=== PATIENT | female | born 1980 | race African-American/Black ===

== ENCOUNTER 2018-02-02 01:16 | Inpatient (IN) | payer OTHER ==
--- NOTE | 2018-02-02 02:01 | PDOC ---
History of Present Illness - General Chief Complaint: Pain, Acute Stated Complaint: ABD PAIN Time Seen by Provider: 02/02/18 02:00 - History of Present Illness Initial Comments: 02/02/18 02:49 Ms. Villalobos is a 37 yo female w/ no pmh who presents for evaluation of epigastric pain. She reports it started around 9 last night and progressed to nausea with vomiting. Patient reports she has had similar instances in the past once or twice which were less severe; cannot relate it to any food or action. She also experienced chills on the way here. The patient denies chest pain, shortness of breath, headache and dizziness. Denies fever, diarrhea and constipation. Denies dysuria, frequency, urgency and hematuria. Allergies: NKDA Past History - Past Medical History Allergies/Adverse Reactions: Allergies Allergy/AdvReac Type Severity Reaction Status Date / Time No Known Allergies Allergy Verified 02/02/18 01:49 Home Medications: Ambulatory Orders NK [No Known Home Medication] 02/02/18 Asthma: No Cancer: No Cardiac Disorders: No Diabetes: No HTN: No Seizures: No Thyroid Disease: No - Suicide/Smoking/Psychosocial Hx Smoking History: Never smoked Have you smoked in the past 12 months: No Information on smoking cessation initiated: No Hx Alcohol Use: No Drug/Substance Use Hx: No Hx Substance Use Treatment: No Review of Systems - Review of Systems Comments:: 02/02/18 02:51 GENERAL/CONSTITUTIONAL: No fever or chills. No weakness. HEAD, EYES, EARS, NOSE AND THROAT: No change in vision. No ear pain or discharge. No sore throat. CARDIOVASCULAR: No chest pain or shortness of breath RESPIRATORY: No cough, wheezing, or hemoptysis. GASTROINTESTINAL: +Epigastric pain w/ N/V/D as described. No diarrhea or constipation. GENITOURINARY: No dysuria, frequency, or change in urination. MUSCULOSKELETAL: No joint or muscle swelling or pain. No neck or back pain. SKIN: No rash NEUROLOGIC: No headache, vertigo, loss of consciousness, or change in strength/ sensation. ENDOCRINE: No increased thirst. No abnormal weight change HEMATOLOGIC/LYMPHATIC: No anemia, easy bleeding, or history of blood clots. ALLERGIC/IMMUNOLOGIC: No hives or skin allergy. *Physical Exam - Vital Signs Last Vital Signs Temp Pulse Resp BP Pulse Ox 99.1 F 82 20 134/83 100 02/02/18 01:50 02/02/18 01:50 02/02/18 01:50 02/02/18 01:50 02/02/18 01:50 - Physical Exam Comments: 02/02/18 02:52 GENERAL: Awake, alert, and fully oriented, in no acute distress HEAD: No signs of trauma, normocephalic, atraumatic EYES: PERRLA, EOMI, sclera anicteric, conjunctiva clear ENT: Auricles normal inspection, hearing grossly normal, nares patent, oropharynx clear without exudates. Moist mucosa NECK: Normal ROM, supple, no lymphadenopathy, JVD, or masses LUNGS: No distress, speaks full sentences, clear to auscultation bilaterally HEART: Regular rate and rhythm, normal S1 and S2, no murmurs, rubs or gallops, peripheral pulses normal and equal bilaterally. ABDOMEN: +Bilateral upper abdominal pain, R>L; otherwise soft, normoactive bowel sounds. No guarding, no rebound. No masses EXTREMITIES: Normal inspection, Normal range of motion, no edema. No clubbing or cyanosis. NEUROLOGICAL: Cranial nerves II through XII grossly intact. Normal speech, normal gait, no focal sensorimotor deficits SKIN: Warm, Dry, normal turgor, no rashes or lesions noted. ED Treatment Course - LABORATORY CBC & Chemistry Diagram: 02/02/18 02:20 02/02/18 02:20 Medical Decision Making - Medical Decision Making 02/02/18 06:38 Ms. Villalobos is a 37 yo female w/ no significant pmh who presents for evaluation of epigastric / RUQ pain suspicious for cholecystitis. Patient workup begun with labs as below and CT abdomen as well as pepcid/fluids/reglan/zofran for symptomatic relief. Patient given tylenol and morphine as well for management of pain. CT abdomen revealed changes c/w cholecystitis although stone not visualized; recommended US for further evaluation. Patient currently pending RUQ US. 02/02/18 06:51 Patient signed out to Dr. Javier for further evaluation. *DC/Admit/Observation/Transfer Diagnosis at time of Disposition: Cholecystitis - Referrals - Patient Instructions - Post Discharge Activity
[2018-02-02] MEDS ORDERED: ONDANSETRON 4 MG/2 ML VIAL IVPUSH ONE (02:06)
[2018-02-02] MEDS ORDERED: SODIUM CHLORIDE 1,000 ML IV STA (02:07)
[2018-02-02] MEDS ORDERED: FAMOTIDINE 20 MG/50 ML IVPB 20 MG/50 ML MG IVPB ONE ×2 (02:07→02:22)
[2018-02-02] MEDS ORDERED: ONDANSETRON 4 MG/2 ML VIAL ONE (02:22)
[2018-02-02 02:35] LABS: EOS % 0.8 % (0-4.5); HEMATOCRIT 32.2 % (32.4-45.2); HEMOGLOBIN 10.1 GM/dL (10.7-15.3); LYMPH % 20.4 % (8-40); MCH 24.7 pg (25.7-33.7); MCHC 31.5 g/dl (32.0-36.0); MEAN CELL VOLUME 78.4 fl (80-96); MONO % 4.9 % (3.8-10.2); NEUT % 72.9 % (42.8-82.8); PLATELET COUNT 296 K/MM3 (134-434); RDW 18.1 % (11.6-15.6); WHITE BLOOD COUNT 7.5 K/mm3 (4.0-10.0)
[2018-02-02] MEDS ORDERED: METOCLOPRAMIDE HCL INJECTION 10 MG/2 ML VIAL ONE ×2 (02:42→03:22)
[2018-02-02] MEDS ORDERED: METOCLOPRAMIDE HCL INJECTION 10 MG/2 ML VIAL IVPB ONE (02:42)
[2018-02-02 02:48] LABS: INR 1.07 (0.82-1.09); PROTHROMBIN TIME (PATIENT) 12.1 SEC (9.7-13.0)
[2018-02-02 02:51] LABS: ACTIVATED PTT 27.8 SECONDS (25.2-36.5)
[2018-02-02 02:55] LABS: ALBUMIN 3.7 g/dl (3.4-5.0); ALK PHOS 75 U/L (45-117); ANION GAP 10 (8-16); BILIRUBIN,TOTAL 0.2 mg/dL (0.2-1.0); BLOOD UREA NITROGEN 11 mg/dL (7-18); CALCIUM 8.8 mg/dL (8.5-10.1); CHLORIDE 103 mmol/L (98-107); CO2 24 mmol/L (21-32); CREATININE 0.6 mg/dL (0.55-1.02); GLUCOSE,RANDOM 120 mg/dL (74-106); POTASSIUM 3.9 mmol/L (3.5-5.1); SGOT/AST 22 U/L (15-37); SGPT/ALT 26 U/L (12-78); SODIUM 137 mmol/L (136-145)
--- NOTE | 2018-02-02 02:58 | PDOC ---
Attending Attestation - HPI HPI: 02/02/18 02:59 The patient is a 37-year-old female, with no past medical history, who presents to the ED with epigastric pain that began at 9 PM yesterday. The patient subsequently developed nausea and vomiting which prompted her to report to the ED. She reports experiencing similar symptoms in the past, but the episodes were never this severe. On exam, the patient reports chills. The patient denies any fever, chills, or diarrhea. Denies any chest pain or shortness of breath. Denies any urinary symptoms. Allergies: NKA - Physicial Exam PE: 02/02/18 03:00 GENERAL: Well developed, well nourished. Awake and alert. No acute distress. HEENT: Normocephalic, atraumatic. PERRLA, EOMI. No conjunctival pallor. Sclera are non- icteric. Moist mucous membranes. Oropharynx is clear. NECK: Supple. Full ROM. No JVD. Carotid pulses 2+ and symmetric, without bruits. No thyromegaly. No lymphadenopathy. CARDIOVASCULAR: Regular rate and rhythm. No murmurs, rubs, or gallops. Distal pulses are 2+ and symmetric. PULMONARY: No evidence of respiratory distress. Lungs clear to auscultation bilaterally. No wheezing, rales or rhonchi. ABDOMINAL: (+)Upper abdominal tenderness, left greater than right. Soft. Non-distended. No rebound or guarding. No organomegaly. Normoactive bowel sounds. MUSCULOSKELETAL Normal range of motion at all joints. No bony deformities or tenderness. No CVA tenderness. EXTREMITIES: No cyanosis. No clubbing. No edema. No calf tenderness. SKIN: Warm and dry. Normal capillary refill. No rashes. No jaundice. NEUROLOGICAL: Alert, awake, appropriate. PSYCHIATRIC: Cooperative. Good eye contact. Appropriate mood and affect. <Ramya Landers - Last Filed: 02/02/18 03:01> - Resident Resident Name: Sivakumar Coleman - ED Attending Attestation I have performed the following: I have examined & evaluated the patient, The case was reviewed & discussed with the resident, I agree w/resident's findings & plan, Exceptions are as noted - Medical Decision Making 02/05/18 19:14 Pt was admitted for further evaluation and care <Nguyễn Rodarte - Last Filed: 02/05/18 19:14> Attestations - Attestations 02/02/18 03:01 Documentation prepared by Ramya Landers, acting as medical records auditor for Nguyễn Rodarte DO. <Ramya Landers - Last Filed: 02/02/18 03:01>
[2018-02-02 02:59] LABS: LIPASE 207 U/L (73-393)
[2018-02-02] MEDS ORDERED: ACETAMINOPHEN 1000 MG/100 ML VIAL (NON FORMULARY) IVPB ONE (03:16)
[2018-02-02] MEDS ORDERED: ACETAMINOPHEN INJECTION 100 ML IVPB ONE (03:23)
[2018-02-02] MEDS ORDERED: morphine CARPU-JECT 4 MG/1 ML DISP.SYRIN IVPUSH ONE ×2 (04:12→06:38)
[2018-02-02] MEDS ORDERED: morphine SULFATE 4 MG/ML VIAL ONE ×2 (04:13→07:03)
[2018-02-02 07:32] LABS: URINE APPEARANCE CLEAR; URINE BILIRUBIN NEGATIVE (<2.0 mg/dL); URINE COLOR STRAW; URINE GLUCOSE (UA) NEGATIVE (NEGATIVE); URINE KETONE 1+ (NEGATIVE); URINE LEUK ESTERASE NEGATIVE (NEGATIVE); URINE NITRITE NEGATIVE (NEGATIVE); URINE PROTEIN NEGATIVE (NEGATIVE); URINE UROBILINOGEN NEGATIVE mg/dL (0.2-1.0)
--- NOTE | 2018-02-02 07:40 | PDOC ---
*Physical Exam - Vital Signs Last Vital Signs Temp Pulse Resp BP Pulse Ox 99.1 F 74 18 103/59 100 02/02/18 01:50 02/02/18 06:53 02/02/18 06:53 02/02/18 06:53 02/02/18 06:53 ED Treatment Course - LABORATORY CBC & Chemistry Diagram: 02/02/18 02:20 02/02/18 02:20 - ADDITIONAL ORDERS Additional order review: Laboratory Results 02/02/18 02/02/18 02/02/18 02:20 02:20 02:20 PT with INR 12.10 INR 1.07 PTT (Actin FS) 27.8 Sodium Potassium Chloride Carbon Dioxide Anion Gap BUN Creatinine Creat Clearance w eGFR Random Glucose Lactic Acid 1.1 Calcium Total Bilirubin AST ALT Alkaline Phosphatase Total Protein Albumin Lipase Serum , Qual Blood Type O POSITIVE Antibody Screen Negative 02/02/18 02/02/18 02:20 02:20 PT with INR INR PTT (Actin FS) Sodium 137 Potassium 3.9 Chloride 103 Carbon Dioxide 24 Anion Gap 10 BUN 11 Creatinine 0.6 Creat Clearance w eGFR > 60 Random Glucose 120 H Lactic Acid Calcium 8.8 Total Bilirubin 0.2 AST 22 ALT 26 Alkaline Phosphatase 75 Total Protein 8.0 Albumin 3.7 Lipase 207 Serum , Qual Negative Blood Type Antibody Screen 02/02/18 02:20 RBC 4.10 MCV 78.4 L MCHC 31.5 L RDW 18.1 H MPV 9.0 D Neutrophils % 72.9 D Lymphocytes % 20.4 D Monocytes % 4.9 Eosinophils % 0.8 Basophils % 1.0 - Medications Given in the ED: ED Medications Discontinued Medications Generic Name Dose Route Start Last Admin Trade Name Elliott PRN Reason Stop Dose Admin Acetaminophen 1,000 mg 02/02/18 03:16 02/02/18 03:25 Ofirmev Injection - IVPB 02/02/18 03:17 1,000 mg ONCE ONE Administration Famotidine/Sodium Chloride 20 mg in 50 mls @ 100 mls/hr 02/02/18 02:07 02:28 Pepcid 20 Mg Premixed Ivpb - IVPB 02/02/18 02:36 100 mls/hr ONCE ONE Administration Sodium Chloride 1,000 mls @ 1,000 mls/hr 02/02/18 02:07 02/02/18 02:28 Normal Saline - IV 02/02/18 03:06 1,000 mls/hr ASDIR STA Administration Metoclopramide HCl 10 mg 02/02/18 02:42 02/02/18 02:50 Reglan Injection - IVPB 02/02/18 02:43 10 mg ONCE ONE Administration Morphine Sulfate 4 mg 02/02/18 04:12 02/02/18 04:19 Morphine Injection - IVPUSH 02/02/18 04:13 4 mg ONCE ONE Administration Morphine Sulfate 4 mg 02/02/18 06:38 02/02/18 07:08 Morphine Injection - IVPUSH 02/02/18 06:39 4 mg ONCE ONE Administration Ondansetron HCl 4 mg 02/02/18 02:06 02/02/18 02:28 Zofran Injection IVPUSH 02/02/18 02:07 4 mg ONCE ONE Administration Medical Decision Making - Medical Decision Making 02/02/18 07:39 The patient is a 37F who presented with abdominal pain and signs of acute cuco on CT. Will page surgery. 02/02/18 07:49 Dr. Kaufman, surgery, states he will come evaluate the patient and board her for surgery. Abx order placed, pt is NPO, giving fluids. 02/02/18 09:29 U/S indicates acute cuco. Hospitalist paged for admission. 02/02/18 10:[address] Brock for admission under Dr. Rogers. *DC/Admit/Observation/Transfer Diagnosis at time of Disposition: Cholecystitis - Discharge Dispostion Condition at time of disposition: Guarded Decision to Admit order: Yes - Referrals - Patient Instructions - Post Discharge Activity
[2018-02-02] MEDS ORDERED: SODIUM CHLORIDE 0.9% 1000 ML INFUS.BAG IV ONE (07:45)
[2018-02-02] MEDS ORDERED: PIPERACILLIN/TAZOB 4.5 GM 4.5 GM in DEXTROSE 5%-WATER 100 ML IVPB ONE (07:56)
--- NOTE | 2018-02-02 08:43 | EKG ---
Test Reason : Blood Pressure : / mmHG Vent. Rate : 067 BPM Atrial Rate : 067 BPM P-R Int : 156 ms QRS Dur : 084 ms QT Int : 392 ms P-R-T Axes : 069 061 042 degrees QTc Int : 414 ms NORMAL SINUS RHYTHM WITH SINUS ARRHYTHMIA POSSIBLE LEFT ATRIAL ENLARGEMENT NO PREVIOUS ECGS AVAILABLE Confirmed by JULY SCHWAB MD ([id number]) on 02/02/2018 8:43:23 AM Referred By: Confirmed By:JULY SCHWAB MD
[2018-02-02] MEDS ORDERED: PIPERACILLIN/TAZOB 4.5 GM 4.5 GM/100 ML BAG IVPB ONE (09:03)
--- NOTE | 2018-02-02 11:08 | HP ---
CHIEF COMPLAINT: Abdominal pain PCP: None HISTORY OF PRESENT ILLNESS: Pt is a 37 yo F with no signif PMHx presenting with a hx of upper abdominal pain x 1 day. Pt was in her usual state of health when she noticed a sudden upper abdominal pain 10/10 at about 9pm last night lasting until about 1am when she came into the hospital. The pain is intermittent, colicky with not related to food, no known worsening or relieving factors. Pain is associated with chills , and n/v of NBNB substances, but no objective fevers. No hematuria, no dysuria or burning on micturition, no loin tenderness. Pt's last bowel movement was during the onset of pain of formed brown stool with blood streaks (pt has a previous hx of hemorrhoids with blood streaked stools in past). No change in diet, no jaundice, no recent travels. Pt had similar symptoms about 2 months ago that lasted a few minutes and self-resolved. Dr Kaufman was consulted in the ED and Pt has been scheduled for cholecystectomy today. LMP: 01/13/18 ER course was notable for: (1) CT abd/pelvis w/ contrast-distended gall bladder with wall thickening, likely cholecystitis, prominent biliary tree. (2) Abd US: 1.6cm calculus in neck of gall bladder , thick walled gall bladder with +ve murphys sign strongly suggestive of acute cholecystitis (3) Zosyn/morphine, zofran, N/saline-2L (4) CXR- no acute changes, EKG- vent rate 67, NSR, NSTE/NSTD, QTc-414 (5) CMP, CBC, Lipase Recent Travel: None PAST MEDICAL HISTORY: None PAST SURGICAL HISTORY: None Social History: Smoking: Denies Alcohol: social Drugs: Denies Family History: Father - 57yrs, of a febrile illness Mother-61yrs- HTN Allergies No Known Allergies Allergy (Verified 02/02/18 01:49) HOME MEDICATIONS: Home Medications Medication Instructions Recorded NK [No Known Home Medication] 02/02/18 REVIEW OF SYSTEMS CONSTITUTIONAL: Absent: fever, chills+, diaphoresis, generalized weakness, malaise, loss of appetite, weight change HEENT: Absent: rhinorrhea, nasal congestion, throat pain, throat swelling, difficulty swallowing, mouth swelling, ear pain, eye pain, visual changes CARDIOVASCULAR: Absent: chest pain, syncope, palpitations, irregular heart rate, lightheadedness , peripheral edema RESPIRATORY: Absent: cough, shortness of breath, dyspnea with exertion, orthopnea, wheezing, stridor, hemoptysis GASTROINTESTINAL: Absent: abdominal pain, abdominal distension, nausea+, vomiting+, diarrhea, constipation, melena, hematochezia GENITOURINARY: Absent: dysuria, frequency, urgency, hesitancy, hematuria, flank pain, genital pain MUSCULOSKELETAL: Absent: myalgia, arthralgia, joint swelling, back pain, neck pain SKIN: Absent: rash, itching, pallor HEMATOLOGIC/IMMUNOLOGIC: Absent: easy bleeding, easy bruising, lymphadenopathy, frequent infections ENDOCRINE: Absent: unexplained weight gain, unexplained weight loss, heat intolerance, cold intolerance NEUROLOGIC: Absent: headache, focal weakness or paresthesias, dizziness, unsteady gait, seizure, mental status changes, bladder or bowel incontinence PSYCHIATRIC: Absent: anxiety, depression, suicidal or homicidal ideation, hallucinations. PHYSICAL EXAMINATION Vital Signs - 24 hr 02/02/18 02/02/18 02/02/18 01:50 06:38 06:53 Temperature 99.1 F Pulse Rate 82 Pulse Rate [ 69 74 Right Apical] Respiratory 20 18 18 Rate Blood Pressure 134/83 Blood Pressure 165/67 103/59 [Right Arm] O2 Sat by Pulse 100 97 100 Oximetry (%) GENERAL: Awake, alert, and fully oriented, in no acute distress. EYES: Pupils equal, round and reactive to light, extraocular movements intact, sclera anicteric, conjunctiva clear EARS, NOSE, THROAT: Moist mucous membranes. LUNGS: Breath sounds equal, clear to auscultation bilaterally. HEART: Regular rate and rhythm, normal S1 and S2 without murmur ABDOMEN: Soft, tender RUQ with +ve murphys sign, not distended, normoactive bowel sounds, no guarding, no rebound HARMONY: External hemorrhoids, non bleeding encircling the anal orifice, good anal hygiene, good tone, empty anal vault, gloved finger without stool MUSCULOSKELETAL: Normal range of motion at all joints. No bony deformities or tenderness. No CVA tenderness. LOWER EXTREMITIES: 2+ pulses, warm, well-perfused. No calf tenderness. No peripheral edema. NEUROLOGICAL: AAOx3, normal strength and muscle tone. Normal speech. CBC, BMP 02/02/18 02:20 02/02/18 02:20 Laboratory Results - last 24 hr 02/02/18 02/02/18 02/02/18 02:20 02:20 02:20 WBC 7.5 RBC 4.10 Hgb 10.1 L Hct 32.2 L D MCV 78.4 L MCH 24.7 L D MCHC 31.5 L RDW 18.1 H Plt Count 296 D MPV 9.0 D Absolute Neuts (auto) 5.5 Neutrophils % 72.9 D Lymphocytes % 20.4 D Monocytes % 4.9 Eosinophils % 0.8 Basophils % 1.0 Nucleated RBC % 0 PT with INR INR PTT (Actin FS) Sodium 137 Potassium 3.9 Chloride 103 Carbon Dioxide 24 Anion Gap 10 BUN 11 Creatinine 0.6 Creat Clearance w eGFR > 60 Random Glucose 120 H Lactic Acid Calcium 8.8 Total Bilirubin 0.2 AST 22 ALT 26 Alkaline Phosphatase 75 Total Protein 8.0 Albumin 3.7 Lipase 207 Serum , Qual Negative Urine Color Urine Appearance Urine pH Ur Specific [place] Urine Protein Urine Glucose (UA) Urine Ketones Urine Blood Urine Nitrite Urine Bilirubin Urine Urobilinogen Ur Leukocyte Esterase Blood Type Antibody Screen 02/02/18 02/02/18 02/02/18 02:20 02:20 02:20 WBC RBC Hgb Hct MCV MCH MCHC RDW Plt Count MPV Absolute Neuts (auto) Neutrophils % Lymphocytes % Monocytes % Eosinophils % Basophils % Nucleated RBC % PT with INR 12.10 INR 1.07 PTT (Actin FS) 27.8 Sodium Potassium Chloride Carbon Dioxide Anion Gap BUN Creatinine Creat Clearance w eGFR Random Glucose Lactic Acid 1.1 Calcium Total Bilirubin AST ALT Alkaline Phosphatase Total Protein Albumin Lipase Serum , Qual Urine Color Urine Appearance Urine pH Ur Specific [place] Urine Protein Urine Glucose (UA) Urine Ketones Urine Blood Urine Nitrite Urine Bilirubin Urine Urobilinogen Ur Leukocyte Esterase Blood Type O POSITIVE Antibody Screen Negative 02/02/18 06:06 WBC RBC Hgb Hct MCV MCH MCHC RDW Plt Count MPV Absolute Neuts (auto) Neutrophils % Lymphocytes % Monocytes % Eosinophils % Basophils % Nucleated RBC % PT with INR INR PTT (Actin FS) Sodium Potassium Chloride Carbon Dioxide Anion Gap BUN Creatinine Creat Clearance w eGFR Random Glucose Lactic Acid Calcium Total Bilirubin AST ALT Alkaline Phosphatase Total Protein Albumin Lipase Serum , Qual Urine Color Straw Urine Appearance Clear Urine pH 7.0 Ur Specific [place] > 1.060 H Urine Protein Negative Urine Glucose (UA) Negative Urine Ketones 1+ H Urine Blood Negative Urine Nitrite Negative Urine Bilirubin Negative Urine Urobilinogen Negative Ur Leukocyte Esterase Negative Blood Type Antibody Screen Current Medications Sodium Chloride (Normal Saline -) 1,000 mls @ 100 mls/hr IV ASDIR LUCY Morphine Sulfate (Morphine Sulfate) 2 mg IVPUSH Q4H PRN PRN Reason: PAIN LEVEL 4 - 6 Morphine Sulfate (Morphine Sulfate) 4 mg IVPUSH Q4H PRN PRN Reason: PAIN LEVEL 6-10 Ondansetron HCl (Zofran Injection) 4 mg IVPUSH Q6H PRN PRN Reason: NAUSEA ASSESSMENT/PLAN: 37 yo F with no signif PMHx presenting with a hx of upper abdominal pain x 1 day , found to have acute cholecystitis with 1.6cm obstructive stone Acute cholecystis with obstructive stone acute cholecystitis with obstructive stone noted on US/ CT a/p, positive murphys and positive sonographic murphys LFTs within normal, Estuardo wnl, lipase wnl Pt is not currently septic, received zosyn 4.45g in ED Received 2L NS, continue @100/hr Cont pain mx with morphine 2mg (1-5), 4mg (6-10) Received 4.45g zosyn in ED in the am, postop antibiotic need to be determined iv zofran 4mg Q6H Surgical consult- Dr Kaufman on board, pt scheduled for cholecystectomy PT/INR-1.07 Type and screen -done EKG/CXR- no acute changes Pt is minimal risk for minimal risk surgery Revised Cardiac Risk Index (RCRI) score-0 (0.4%) risk of major cardiac event Myocardial infarction or cardiac arrest intraoperatively (JULIA)-0.0% Anemia Mild Microcytic anemia, currently asymptomatic, likely chronic Could be due to blood loss from hemorrhoids Monitor CBC Type and screen Coags within normal Pt will need follow up iron studies likely as an outpatient FEN NS @100 Monitor lytes, replete as needed, Mg and Ph NPO for now PPx SCDs, early ambulation hold heparin for [facility] admission D/W Dr Katy Brock MD PGY 2 Pager number [phone] Visit type - Emergency Visit Emergency Visit: Yes Care time: The patient presented to the Emergency Department on the above date and was hospitalized for further evaluation of their emergent condition. - New Patient This patient is new to me today: Yes Date on this admission: 02/02/18 - Critical Care Critical Care patient: No Hospitalist Screening - Colonoscopy Questionnaire Colonoscopy Questionnaire: Colonoscopy Questionnaire - Patient: 50 - 75 years old and never had a screening colonoscopy: Unknown History of colon or rectal polyps, or CA: Unknown History of IBD, Crohn's disease or UC: Unknown History of abdominal radiation therapy as a child: Unknown - Relative: 1 with colon or rectal CA, or polyps at age 60 or younger: Unknown Colon or rectal CA diagnosed at age 45 or younger: Unknown Multiple relatives with colon or rectal CA: Unknown - Outcome: Screening Result: Negative Screen
[2018-02-02] MEDS ORDERED: SODIUM CHLORIDE 1,000 ML IV SCH (12:00)
[2018-02-02] MEDS ORDERED: MORPHINE SULFATE 2 MG/ML VIAL IVPUSH PRN (12:08)
[2018-02-02] MEDS ORDERED: morphine SULFATE 4 MG/ML VIAL IVPUSH PRN (12:11)
[2018-02-02] MEDS ORDERED: ONDANSETRON 4 MG/2 ML VIAL IVPUSH PRN (12:27)
--- NOTE | 2018-02-02 14:50 | PN ---
Teaching Attending Note Name of Resident: Arielle Brock ATTENDING PHYSICIAN STATEMENT I saw and evaluated the patient. I reviewed the resident's note and discussed the case with the resident. I agree with the resident's findings and plan as documented. SUBJECTIVE: This is a 37 year old woman with no significant history who comes to the ED complaining of upper abdominal pain x 1 day. Pain started suddenly around 9 pm last night, 2 hours after eating. She had nausea, vomiting, chills. The pain was on and off until around 1 am. She denies hematemesis, melena, rectal bleeding, change in bowel habits, weight loss, loss of appetite. She had similar abdominal pain 2 months ago which lasted a few minutes and resolved on its own. OBJECTIVE: Vital Signs Period Temp Pulse Resp BP Sys/Hendrix Pulse Ox Last 24 Hr 98.4 F-99.1 F 59-82 18-20 103-165/59-83 97-100 HEART: S1S2, RRR LUNGS: Clear ABDOMEN: Soft, non-distended, (+) RUQ tenderness, normal BS EXTREMITIES: No edema Laboratory Tests 02/02/18 02/02/18 02/02/18 02:20 02:20 02:20 WBC 7.5 RBC 4.10 Hgb 10.1 L Hct 32.2 L D MCV 78.4 L MCH 24.7 L D MCHC 31.5 L RDW 18.1 H Plt Count 296 D MPV 9.0 D Absolute Neuts (auto) 5.5 Neutrophils % 72.9 D Lymphocytes % 20.4 D Monocytes % 4.9 Eosinophils % 0.8 Basophils % 1.0 Nucleated RBC % 0 PT with INR INR PTT (Actin FS) Sodium 137 Potassium 3.9 Chloride 103 Carbon Dioxide 24 Anion Gap 10 BUN 11 Creatinine 0.6 Creat Clearance w eGFR > 60 Random Glucose 120 H Lactic Acid Calcium 8.8 Total Bilirubin 0.2 AST 22 ALT 26 Alkaline Phosphatase 75 Total Protein 8.0 Albumin 3.7 Lipase 207 Serum , Qual Negative Urine Color Urine Appearance Urine pH Ur Specific [place] Urine Protein Urine Glucose (UA) Urine Ketones Urine Blood Urine Nitrite Urine Bilirubin Urine Urobilinogen Ur Leukocyte Esterase Blood Type Antibody Screen 02/02/18 02/02/18 02/02/18 02:20 02:20 02:20 WBC RBC Hgb Hct MCV MCH MCHC RDW Plt Count MPV Absolute Neuts (auto) Neutrophils % Lymphocytes % Monocytes % Eosinophils % Basophils % Nucleated RBC % PT with INR 12.10 INR 1.07 PTT (Actin FS) 27.8 Sodium Potassium Chloride Carbon Dioxide Anion Gap BUN Creatinine Creat Clearance w eGFR Random Glucose Lactic Acid 1.1 Calcium Total Bilirubin AST ALT Alkaline Phosphatase Total Protein Albumin Lipase Serum , Qual Urine Color Urine Appearance Urine pH Ur Specific [place] Urine Protein Urine Glucose (UA) Urine Ketones Urine Blood Urine Nitrite Urine Bilirubin Urine Urobilinogen Ur Leukocyte Esterase Blood Type O POSITIVE Antibody Screen Negative 02/02/18 06:06 WBC RBC Hgb Hct MCV MCH MCHC RDW Plt Count MPV Absolute Neuts (auto) Neutrophils % Lymphocytes % Monocytes % Eosinophils % Basophils % Nucleated RBC % PT with INR INR PTT (Actin FS) Sodium Potassium Chloride Carbon Dioxide Anion Gap BUN Creatinine Creat Clearance w eGFR Random Glucose Lactic Acid Calcium Total Bilirubin AST ALT Alkaline Phosphatase Total Protein Albumin Lipase Serum , Qual Urine Color Straw Urine Appearance Clear Urine pH 7.0 Ur Specific [place] > 1.060 H Urine Protein Negative Urine Glucose (UA) Negative Urine Ketones 1+ H Urine Blood Negative Urine Nitrite Negative Urine Bilirubin Negative Urine Urobilinogen Negative Ur Leukocyte Esterase Negative Blood Type Antibody Screen Home Medications Medication Instructions Recorded NK [No Known Home Medication] 02/02/18 ASSESSMENT AND PLAN: This is a 37 year old woman with no significant medical history who presented to the ED with sudden onset last night of upper abdominal pain associated with nausea, vomiting and chills. 1. Acute cholecystitis - Abd US shows 1.6 cm stone in gallbladder neck, thickened gallbladder wall, positive Scherer's sign, strongly suggestive of acute cholecystitis - CT abd/pelvis shows distended gallbladder with wall thickening, suspicious for cholecystitis - Zosyn given in ED - will continue - IV fluid - NPO - Morphine as needed for pain - Zofran as needed for nausea - Surgery consult 2. Anemia, microcytic - Asymptomatic - Likely chronic - Monitor hemoglobin - Work-up can be done as outpatient if patient remains stable
[2018-02-02 15:54] VITALS: BMI 24.1
[2018-02-02 16:43] LABS: INR 1.17 (0.82-1.09); PROTHROMBIN TIME (PATIENT) 13.2 SEC (9.7-13.0)
[2018-02-02 16:46] LABS: ACTIVATED PTT 30.7 SECONDS (25.2-36.5)
--- NOTE | 2018-02-02 18:19 | CONSULT ---
Consult Consult Specialty:: Surgery Reason for Consultation:: Abdominal pain , acute cholecystitis. - History of Present Illness Chief Complaint: 37 year old woman c/o right sided abdominal pain for the past 2 days, not being relieved , and came to the ER this morning. Patient was seen at 8:00 am this morning and again at 2:00pm. She hasd a similar episode a few months ago. History of Present Illness: C/O Right sided abdominal pain for the past 2 days, with nausea. - History Source History Provided By: Patient Limitations to Obtaining History: No Limitations - Alcohol/Substance Use Hx Alcohol Use: No - Smoking History Smoking history: Never smoked Have you smoked in the past 12 months: No Home Medications - Allergies Allergies/Adverse Reactions: Allergies Allergy/AdvReac Type Severity Reaction Status Date / Time No Known Allergies Allergy Verified 02/02/18 01:49 - Home Medications Home Medications: Ambulatory Orders NK [No Known Home Medication] 02/02/18 Physical Exam Vital Signs: Vital Signs Temperature 98.6 F 02/02/18 12:30 Pulse Rate 59 L 02/02/18 12:30 Respiratory Rate 18 02/02/18 12:30 Blood Pressure 124/73 02/02/18 12:30 O2 Sat by Pulse Oximetry (%) 100 02/02/18 09:25 Gastrointestinal: Yes: Other (Abdomen is tender in the right upper quadrant. There is no palpable mass.) Labs: CBC, BMP 02/02/18 02:20 02/02/18 02:20 Imaging - Results Cat Scan: Report Reviewed, Image Reviewed Ultrasound: Report Reviewed, Image Reviewed (Calculus of gallbladder , impacted in the infundibulum , with some thickening of the gallbladder.) Problem List - Problems (1) Abdominal pain, acute, right upper quadrant Code(s): R10.11 - RIGHT UPPER QUADRANT PAIN (2) Calculus of gallbladder with cholecystitis and obstruction Code(s): K80.19 - CALCULUS OF GALLBLADDER W OTH CHOLECYSTITIS WITH OBSTRUCTION Qualifiers: Cholelithiasis location: gallbladder Cholecystitis acuity: acute Qualified Code(s): K80.01 - Calculus of gallbladder with acute cholecystitis with obstruction Assessment/Plan Acute cholecystitis, with stone in infundibulum. Plan : Hydrate , IV antibiotics. Pain management. Patient was on the add on schedule for today, but OR time is not available, She is on the schedule for Monday.
[2018-02-03] MEDS ORDERED: PIPERACILLIN/TAZOB 4.5 GM 4.5 GM in DEXTROSE 5%-WATER 100 ML IVPB ONE (06:04)
[2018-02-03] MEDS ORDERED: PIPERACILLIN/TAZOBACTAM 4.5 GM VIAL IVPB ONE (06:16)
[2018-02-03] MEDS ORDERED: DEXTROSE 5%-WATER 100 ML IVPB ONE (06:16)
[2018-02-03 07:59] LABS: EOS % 2.1 % (0-4.5); HEMATOCRIT 30.7 % (32.4-45.2); HEMOGLOBIN 9.7 GM/dL (10.7-15.3); LYMPH % 29.5 % (8-40); MCH 24.9 pg (25.7-33.7); MCHC 31.7 g/dl (32.0-36.0); MEAN CELL VOLUME 78.4 fl (80-96); MONO % 9.3 % (3.8-10.2); NEUT % 58.1 % (42.8-82.8); PLATELET COUNT 249 K/MM3 (134-434); RBC 3.91 M/mm3 (3.60-5.2); RDW 17.8 % (11.6-15.6)
[2018-02-03 08:32] LABS: ALBUMIN 3.1 g/dl (3.4-5.0); ANION GAP 8 (8-16); BILIRUBIN,TOTAL 0.5 mg/dL (0.2-1.0); BLOOD UREA NITROGEN 3 mg/dL (7-18); CALCIUM 8.6 mg/dL (8.5-10.1); CHLORIDE 108 mmol/L (98-107); CO2 25 mmol/L (21-32); CREATININE 0.6 mg/dL (0.55-1.02); GLUCOSE,RANDOM 88 mg/dL (74-106); MAGNESIUM 2.2 mg/dL (1.8-2.4); PHOSPHOROUS 3.3 mg/dL (2.5-4.9); SGOT/AST 21 U/L (15-37); SGPT/ALT 23 U/L (12-78); SODIUM 141 mmol/L (136-145); TOT PROT 6.9 g/dl (6.4-8.2)
[2018-02-03 08:33] LABS: ALK PHOS 55 U/L (45-117)
--- NOTE | 2018-02-03 13:25 | PN ---
Progress Note, Physician - Current Medication List Current Medications: Active Medications Sodium Chloride (Normal Saline -) 1,000 mls @ 100 mls/hr IV ASDIR LUCY Last Admin: 02/02/18 23:10 Dose: 100 mls/hr Morphine Sulfate (Morphine Sulfate) 2 mg IVPUSH Q4H PRN PRN Reason: PAIN LEVEL 4 - 6 Morphine Sulfate (Morphine Sulfate) 4 mg IVPUSH Q4H PRN PRN Reason: PAIN LEVEL 6-10 Ondansetron HCl (Zofran Injection) 4 mg IVPUSH Q6H PRN PRN Reason: NAUSEA - Objective Vital Signs: Vital Signs Temperature 98.3 F 02/03/18 05:50 Pulse Rate 68 02/03/18 05:50 Respiratory Rate 20 02/03/18 09:00 Blood Pressure 115/72 02/03/18 05:50 O2 Sat by Pulse Oximetry (%) 100 02/03/18 09:00 Labs: CBC, BMP 02/03/18 06:00 02/03/18 06:00 INR, PTT INR 1.17 (0.82-1.09) H 02/02/18 15:00 Problem List - Problems (1) Abdominal pain, acute, right upper quadrant Code(s): R10.11 - RIGHT UPPER QUADRANT PAIN (2) Calculus of gallbladder with cholecystitis and obstruction Code(s): K80.19 - CALCULUS OF GALLBLADDER W OTH CHOLECYSTITIS WITH OBSTRUCTION Qualifiers: Cholelithiasis location: gallbladder Cholecystitis acuity: acute Qualified Code(s): K80.01 - Calculus of gallbladder with acute cholecystitis with obstruction Assessment/Plan Patient is still pump operator in right upper quadrant. Not icteric. OPlan : Cholecystectomy on Monday.
--- NOTE | 2018-02-03 14:40 | PN ---
Progress Note (short form) - Note Progress Note: c/o RUQ on palpation but none at rest. tolerating liquid diet. denies CP, SOB< fever, chills, N/V/C/D Current Medications Generic Name Dose Route Start Last Admin Trade Name Freq PRN Reason Stop Dose Admin Sodium Chloride 1,000 mls @ 100 mls/hr 02/02/18 12:00 02/02/18 23:10 Normal Saline - IV 100 mls/hr ASDIR LUCY Administration Ceftriaxone Sodium 2 gm in 50 mls @ 100 mls/hr 02/03/18 14:45 Ceftriaxone 2 Gm-D5w Bag IVPB DAILY LUCY Protocol Metronidazole 500 mg in 100 mls @ 100 mls/hr 02/03/18 18:00 Flagyl 500mg Premixed Ivpb - IVPB Q8H-IV LUCY Morphine Sulfate 2 mg 02/02/18 12:08 Morphine Sulfate IVPUSH Q4H PRN PAIN LEVEL 4 - 6 Morphine Sulfate 4 mg 02/02/18 12:11 Morphine Sulfate IVPUSH Q4H PRN PAIN LEVEL 6-10 Ondansetron HCl 4 mg 02/02/18 12:27 Zofran Injection IVPUSH Q6H PRN NAUSEA Last Vital Signs Temp Pulse Resp BP Pulse Ox 98.3 F 68 20 115/72 100 02/03/18 05:50 02/03/18 05:50 02/03/18 09:00 02/03/18 05:50 02/03/18 09:00 General NAD CV S1 S2 RRR no murmur/rub/gallop Lungs CTA B/L no wheezing/rales/rhonchi Abdomen +RUQ tenderness, no rebound or guarding, soft +BS Extremities no pedal edema CBCD WBC 6.0 K/mm3 (4.0-10.0) 02/03/18 06:00 RBC 3.91 M/mm3 (3.60-5.2) 02/03/18 06:00 Hgb 9.7 GM/dL (10.7-15.3) L 02/03/18 06:00 Hct 30.7 % (32.4-45.2) L 02/03/18 06:00 MCV 78.4 fl (80-96) L 02/03/18 06:00 MCHC 31.7 g/dl (32.0-36.0) L 02/03/18 06:00 RDW 17.8 % (11.6-15.6) H 02/03/18 06:00 Plt Count 249 K/MM3 (134-434) 02/03/18 06:00 MPV 9.0 fl (7.5-11.1) 02/03/18 06:00 CMP Sodium 141 mmol/L (136-145) 02/03/18 06:00 Potassium 4.0 mmol/L (3.5-5.1) 02/03/18 06:00 Chloride 108 mmol/L (98-107) H 02/03/18 06:00 Carbon Dioxide 25 mmol/L (21-32) 02/03/18 06:00 Anion Gap 8 (8-16) 02/03/18 06:00 BUN 3 mg/dL (7-18) L 02/03/18 06:00 Creatinine 0.6 mg/dL (0.55-1.02) 02/03/18 06:00 Creat Clearance w eGFR > 60 (>60) 02/03/18 06:00 Calcium 8.6 mg/dL (8.5-10.1) 02/03/18 06:00 Total Bilirubin 0.5 mg/dL (0.2-1.0) 02/03/18 06:00 AST 21 U/L (15-37) 02/03/18 06:00 ALT 23 U/L (12-78) 02/03/18 06:00 Alkaline Phosphatase 55 U/L (45-117) D 02/03/18 06:00 Total Protein 6.9 g/dl (6.4-8.2) 02/03/18 06:00 Albumin 3.1 g/dl (3.4-5.0) L 02/03/18 06:00 A/P 37yo F wtih no PMH presenting with RUQ pain and found to have acute cholecystitis 1. ACute cholecystitis- tolerating liquid diet. plan for laprascopic cholecystectomy on Monday due to scheduling conflict. Switch Zosyn to Ceftriaxone/Flagyl. can d/c abx after surgery. reduce IVF to 75cc/H as tolerating diet. pain control. surgery on board 2. Microcytic anemia- dilutional effect. no signs of bleeding. check iron studies. no indication for txn 3. DVT ppx- EAM Visit type - Emergency Visit Emergency Visit: Yes Care time: The patient presented to the Emergency Department on the above date and was hospitalized for further evaluation of their emergent condition. - New Patient This patient is new to me today: Yes Date on this admission: 02/03/18 - Critical Care Critical Care patient: No - Discharge Referral Referred to [facility] Med P.C.: No
[2018-02-03] MEDS ORDERED: DEXTROSE 5%-WATER - 50 ML IVPB ONE (14:54)
[2018-02-03] MEDS: CEFTRIAXONE 2 GM in DEXTROSE 5%-WATER - 50 ML IVPB SCH (14:57)
[2018-02-03] MEDS: SODIUM CHLORIDE 1,000 ML IV SCH (16:00)
[2018-02-04] MEDS: SODIUM CHLORIDE 1,000 ML IV SCH ×2 (01:25→17:29)
[2018-02-04 06:46] LABS: HEMATOCRIT 33.9 % (32.4-45.2); HEMOGLOBIN 10.6 GM/dL (10.7-15.3); MCH 24.6 pg (25.7-33.7); MCHC 31.3 g/dl (32.0-36.0); MEAN CELL VOLUME 78.5 fl (80-96); MEAN PLT VOLUME 8.7 fl (7.5-11.1); PLATELET COUNT 302 K/MM3 (134-434); RBC 4.32 M/mm3 (3.60-5.2); RDW 18.3 % (11.6-15.6); WHITE BLOOD COUNT 6.9 K/mm3 (4.0-10.0)
[2018-02-04] MEDS ORDERED: DEXTROSE 5%-WATER - 50 ML IVPB ONE (09:25)
[2018-02-04] MEDS: CEFTRIAXONE 2 GM in DEXTROSE 5%-WATER - 50 ML IVPB SCH (10:35)
[2018-02-04] MEDS ORDERED: PT OWN MED DRAWER 7, Y5N ONE ×2 (11:08→17:15)
--- NOTE | 2018-02-04 12:47 | PN ---
Progress Note (short form) - Note Progress Note: c/o RUQ on palpation but none at rest. tolerating liquid diet. denies CP, SOB< fever, chills, N/V/C/D Current Medications Generic Name Dose Route Start Last Admin Trade Name Freq PRN Reason Stop Dose Admin Ceftriaxone Sodium 2 gm/ 50 mls @ 100 mls/hr 02/03/18 14:45 02/04/18 10:35 Dextrose IVPB 100 mls/hr DAILY LUCY Administration Protocol Metronidazole 500 mg in 100 mls @ 100 mls/hr 02/03/18 18:00 02/04/18 09:30 Flagyl 500mg Premixed Ivpb - IVPB 100 mls/hr Q8H-IV LUCY Administration Sodium Chloride 1,000 mls @ 75 mls/hr 02/03/18 15:36 02/04/18 01:25 Normal Saline - IV 75 mls/hr ASDIR LUCY Administration Morphine Sulfate 2 mg 02/02/18 12:08 Morphine Sulfate IVPUSH Q4H PRN PAIN LEVEL 4 - 6 Morphine Sulfate 4 mg 02/02/18 12:11 Morphine Sulfate IVPUSH Q4H PRN PAIN LEVEL 6-10 Ondansetron HCl 4 mg 02/02/18 12:27 Zofran Injection IVPUSH Q6H PRN NAUSEA Last Vital Signs Temp Pulse Resp BP Pulse Ox 98.3 F 63 18 112/78 100 02/04/18 09:29 02/04/18 09:29 02/04/18 09:29 02/04/18 09:29 02/04/18 09:00 General NAD CV S1 S2 RRR no murmur/rub/gallop Lungs CTA B/L no wheezing/rales/rhonchi Abdomen +RUQ tenderness, no rebound or guarding, soft +BS Extremities no pedal edema CBCD WBC 6.9 K/mm3 (4.0-10.0) 02/04/18 06:00 RBC 4.32 M/mm3 (3.60-5.2) 02/04/18 06:00 Hgb 10.6 GM/dL (10.7-15.3) L 02/04/18 06:00 Hct 33.9 % (32.4-45.2) 02/04/18 06:00 MCV 78.5 fl (80-96) L 02/04/18 06:00 MCHC 31.3 g/dl (32.0-36.0) L 02/04/18 06:00 RDW 18.3 % (11.6-15.6) H 02/04/18 06:00 Plt Count 302 K/MM3 (134-434) D 02/04/18 06:00 MPV 8.7 fl (7.5-11.1) 02/04/18 06:00 CMP Sodium 141 mmol/L (136-145) 02/03/18 06:00 Potassium 4.0 mmol/L (3.5-5.1) 02/03/18 06:00 Chloride 108 mmol/L (98-107) H 02/03/18 06:00 Carbon Dioxide 25 mmol/L (21-32) 02/03/18 06:00 Anion Gap 8 (8-16) 02/03/18 06:00 BUN 3 mg/dL (7-18) L 02/03/18 06:00 Creatinine 0.6 mg/dL (0.55-1.02) 02/03/18 06:00 Creat Clearance w eGFR > 60 (>60) 02/03/18 06:00 Calcium 8.6 mg/dL (8.5-10.1) 02/03/18 06:00 Total Bilirubin 0.5 mg/dL (0.2-1.0) 02/03/18 06:00 AST 21 U/L (15-37) 02/03/18 06:00 ALT 23 U/L (12-78) 02/03/18 06:00 Alkaline Phosphatase 55 U/L (45-117) D 02/03/18 06:00 Total Protein 6.9 g/dl (6.4-8.2) 02/03/18 06:00 Albumin 3.1 g/dl (3.4-5.0) L 02/03/18 06:00 A/P 37yo F wtih no PMH presenting with RUQ pain and found to have acute cholecystitis 1. ACute cholecystitis- tolerating liquid diet. NPO tonight for laprascopic cholecystectomy tomorrow. On Ceftriaxone/Flagyl day 3 of total abx. can d/c abx after surgery. cont IVF, nausea and pain control. surgery on board 2. Microcytic anemia- dilutional effect. no signs of bleeding. iron studies pending. no indication for txn 3. DVT ppx- EAM Visit type - Emergency Visit Emergency Visit: Yes ED Registration Date: 02/03/18 Care time: The patient presented to the Emergency Department on the above date and was hospitalized for further evaluation of their emergent condition. - New Patient This patient is new to me today: No - Critical Care Critical Care patient: No - Discharge Referral Referred to [facility] Med P.C.: No
[2018-02-05] MEDS ORDERED: DEXTROSE 5%-WATER - 50 ML IVPB ONE (09:53)
[2018-02-05] MEDS: SODIUM CHLORIDE 1,000 ML IV SCH ×4 (09:59→17:57)
[2018-02-05] MEDS: CEFTRIAXONE 2 GM in DEXTROSE 5%-WATER - 50 ML IVPB SCH (10:00)
[2018-02-05] MEDS ORDERED: PROPOFOL 20 ML ONE (13:32)
[2018-02-05] MEDS ORDERED: MIDAZOLAM HCL 2 MG/2 ML SINGLE DOSE VIAL ONE (13:32)
[2018-02-05] MEDS ORDERED: ROCURONIUM BROMIDE 50 MG/5 ML VIAL ONE (13:32)
[2018-02-05] MEDS ORDERED: fentaNYL CITRATE 250 MCG/5 ML VIAL ONE (13:32)
--- NOTE | 2018-02-05 13:40 | PN ---
Teaching Attending Note Name of Resident: Magdaleno Monet ATTENDING PHYSICIAN STATEMENT I saw and evaluated the patient. I reviewed the resident's note and discussed the case with the resident. I agree with the resident's findings and plan as documented. SUBJECTIVE:asymptomatic. tolerating clear liquid diet. dneies CP, SOB, fever, chills, N/V/C/D OBJECTIVE: Last Vital Signs Temp Pulse Resp BP Pulse Ox 98.3 F 70 18 125/78 100 02/05/18 06:00 02/05/18 06:00 02/05/18 06:00 02/05/18 06:00 02/04/18 09:00 General NAD Abdomen soft+RUQ tenderness ASSESSMENT AND PLAN: 37yo F wtih no PMH presenting with RUQ pain and found to have acute cholecystitis 1. ACute cholecystitis- tolerating liquid diet. NPO for laprascopic cholecystectomy. On Ceftriaxone/Flagyl day 4 of total abx. can d/c abx after surgery. cont IVF, nausea and pain control. surgery on board 2. Microcytic anemia- dilutional effect. no signs of bleeding. iron studies pending. no indication for txn 3. DVT ppx- EAM 4. possible d/c home today post surgery as long as no complications from surgery
[2018-02-05] MEDS ORDERED: ONDANSETRON 4 MG/2 ML VIAL IVPUSH PRN ×3 (13:41→16:06)
[2018-02-05] MEDS ORDERED: LACTATED RINGERS SOLUTION 1,000 ML IV SCH ×2 (13:45→16:06)
[2018-02-05] MEDS ORDERED: ceFAZolin SODIUM 1 GM VIAL IVPB ONE ×2 (14:10)
[2018-02-05] MEDS ORDERED: ceFAZolin SODIUM 1 GM VIAL ONE (14:13)
[2018-02-05] MEDS ORDERED: DEXAMETHASONE SOD PHOSPHATE 4 MG/1 ML VIAL ONE (14:13)
[2018-02-05] MEDS ORDERED: GLYCOPYRROLATE 0.2 MG/1 ML VIAL ONE (15:23)
[2018-02-05] MEDS ORDERED: NEOSTIGMINE METHYLSULFATE 0.5 MG/ML - 10 ML MDV ONE (15:24)
--- NOTE | 2018-02-05 15:44 | OP ---
Operative Note - Note: Operative Date: 02/05/18 Pre-Operative Diagnosis: Calculus of gallbladder with acute cholecystitis, umbilical hernia. Operation: Laparoscopic cholecystectomy, primary repair of umbilical hernia,. Lysis of omental adhesions. Findings: Acutely inflammed gallbladder, with omental adhesions, surrounding the gallbladder. Umbilical hernia. Post-Operative Diagnosis: Other (Calculus of gallbladder with acute cholecystitis with cystic duct obstruction ,Omental adhesions, Umbilical hernia. ) Surgeon: Gayatri Kaufman Anesthesiologist/MEDICAL TRANSPORT SPECIALIST: Clara Trevino Anesthesia: General Specimens Removed: Gallbladder Estimated Blood Loss (mls): 15 Operative Report Dictated: Yes
--- NOTE | 2018-02-05 15:56 | PN ---
Progress Note, Physician - Current Medication List Current Medications: Active Medications Fentanyl (Sublimaze Injection -) 50 mcg IVPUSH [id number] PRN PRN Reason: PAIN-PACU ORDER X 4 DOSES ONLY Ceftriaxone Sodium 2 gm/ (Dextrose) 50 mls @ 100 mls/hr IVPB DAILY LUCY; Protocol Last Admin: 02/05/18 10:00 Dose: 100 mls/hr Metronidazole (Flagyl 500mg Premixed Ivpb -) 500 mg in 100 mls @ 100 mls/hr IVPB Q8H-IV LUCY Last Admin: 02/05/18 10:00 Dose: 100 mls/hr Sodium Chloride (Normal Saline -) 1,000 mls @ 75 mls/hr IV ASDIR LUCY Last Admin: 02/05/18 09:59 Dose: 75 mls/hr Lactated Ringer's (Lactated Ringers Solution) 1,000 mls @ 75 mls/hr IV ASDIR LUCY Morphine Sulfate (Morphine Sulfate) 2 mg IVPUSH Q4H PRN PRN Reason: PAIN LEVEL 4 - 6 Last Admin: 02/05/18 10:44 Dose: 2 mg Morphine Sulfate (Morphine Sulfate) 4 mg IVPUSH Q4H PRN PRN Reason: PAIN LEVEL 6-10 Ondansetron HCl (Zofran Injection) 4 mg IVPUSH Q6H PRN PRN Reason: NAUSEA Ondansetron HCl (Zofran Injection) 4 mg IVPUSH Q6H PRN PRN Reason: NAUSEA AND/OR VOMITING - Objective Vital Signs: Vital Signs Temperature 98.5 F 02/05/18 13:00 Pulse Rate 72 02/05/18 13:00 Respiratory Rate 20 02/05/18 13:00 Blood Pressure 135/68 02/05/18 13:00 O2 Sat by Pulse Oximetry (%) 100 02/04/18 09:00 Labs: CBC, BMP 02/04/18 06:00 02/03/18 06:00 INR, PTT INR 1.17 (0.82-1.09) H 02/02/18 15:00 Problem List - Problems (1) Abdominal pain, acute, right upper quadrant Code(s): R10.11 - RIGHT UPPER QUADRANT PAIN (2) Calculus of gallbladder with cholecystitis and obstruction Code(s): K80.19 - CALCULUS OF GALLBLADDER W OTH CHOLECYSTITIS WITH OBSTRUCTION Qualifiers: Cholelithiasis location: gallbladder Cholecystitis acuity: acute Qualified Code(s): K80.01 - Calculus of gallbladder with acute cholecystitis with obstruction Assessment/Plan Patient examined , procedure explained. Patient also had an umbilical hernia. She was informed that this will be encountered and repaired primarily, consent obtained, along with cholecystectomy.
[2018-02-05] MEDS ORDERED: morphine SULFATE 4 MG/ML VIAL IVPUSH PRN (16:06)
[2018-02-05] MEDS ORDERED: IBUPROFEN 400 MG TABLET (FP) PO PRN (16:06)
[2018-02-05] MEDS ORDERED: MORPHINE SULFATE 2 MG/ML VIAL IVPUSH PRN (16:06)
[2018-02-05] MEDS ORDERED: oxyCODONE HCL 5 MG TABLET PO PRN (16:14)
[2018-02-05] MEDS ORDERED: ACETAMINOPHEN 325 MG TABLET (FP) PO PRN (16:15)
[2018-02-05] MEDS ORDERED: morphine SULFATE 4 MG/ML VIAL IVPUSH ONE (19:05)
--- NOTE | 2018-02-05 20:10 | PN ---
Physical Exam: SUBJECTIVE: Patient seen and examined. No acute complaints. Had 2 loose BMs overnight, Pt. endorses urination. Pt. endorses a decrease in pain in RUQ. OBJECTIVE: Vital Signs Period Temp Pulse Resp BP Sys/Hendrix Pulse Ox Last 24 Hr 98 F-99.2 F 58-91 16-20 107-135/54-84 98-100 GENERAL: The patient is awake, alert, and fully oriented, in no acute distress. LUNGS: Breath sounds equal, clear to auscultation bilaterally, no wheezes, no crackles, no accessory muscle use. HEART: Regular rate and rhythm, S1, S2 without murmur, rub or gallop. ABDOMEN: Soft, nondistended, normoactive bowel sounds, guarding in RUQ, RUQ tenderness EXTREMITIES: warm, well-perfused, no edema, no calf tenderness. PSYCH: Normal mood, normal affect. SKIN: Warm, dry, normal turgor Active Medications Current Medications Acetaminophen (Tylenol -) 325 mg PO Q6H PRN PRN Reason: PAIN LEVEL 4 - 6 Ceftriaxone Sodium 2 gm/ (Dextrose) 100 mls @ 200 mls/hr IVPB DAILY LUCY; Protocol Metronidazole (Flagyl 500mg Premixed Ivpb -) 500 mg in 100 mls @ 100 mls/hr IVPB Q8H-IV LUCY Last Admin: 02/05/18 17:56 Dose: 100 mls/hr Sodium Chloride (Normal Saline -) 1,000 mls @ 75 mls/hr IV ASDIR LUCY Last Admin: 02/05/18 17:56 Dose: 75 mls/hr Ibuprofen (Motrin -) 200 mg PO Q4H PRN PRN Reason: PAIN LEVEL 1 - 3 Morphine Sulfate (Morphine Sulfate) 2 mg IVPUSH Q4H PRN PRN Reason: PAIN LEVEL 4 - 6 Last Admin: 02/05/18 18:00 Dose: 2 mg Morphine Sulfate (Morphine Sulfate) 4 mg IVPUSH Q4H PRN PRN Reason: PAIN LEVEL 7 - 10 Ondansetron HCl (Zofran Injection) 4 mg IVPUSH Q6H PRN PRN Reason: NAUSEA Ondansetron HCl (Zofran Injection) 4 mg IVPUSH Q6H PRN PRN Reason: NAUSEA AND/OR VOMITING Stop: 02/06/18 03:00 Oxycodone HCl (Roxicodone -) 5 mg PO Q6H PRN PRN Reason: PAIN LEVEL 4 - 6 ASSESSMENT/PLAN: 37 yo F wtih no PMH presenting with RUQ pain and found to have acute cholecystitis # Acute cholecystitis - tolerating liquid diet. NPO for laprascopic cholecystectomy, resume diet as per Surgery post-op instructions - on Ceftriaxone/Flagyl day 4 of total abx. - c/w abx after surgery as per Surgery - cont IVF, nausea and pain control. - surgery on board # Microcytic anemia -likely dilutional effect no signs of bleeding. -iron studies pending -no indication for transfusion -Hgb trending up # DVT ppx - Early ambulation # Dispo - d/c tomorrow post surgery as long as can tolerate PO in take and D/C IV Abx. Visit type - Emergency Visit Emergency Visit: Yes ED Registration Date: 02/03/18 Care time: The patient presented to the Emergency Department on the above date and was hospitalized for further evaluation of their emergent condition. - New Patient This patient is new to me today: Yes Date on this admission: 02/05/18 - Critical Care Critical Care patient: No - Discharge Referral Referred to [facility] Med P.C.: No
--- NOTE | 2018-02-06 06:25 | OP ---
DATE OF OPERATION: 02/05/2018 PREOPERATIVE DIAGNOSES: Cholelithiasis and acute cholecystitis with obstruction and umbilical hernia. POSTOPERATIVE DIAGNOSES: 1. Acute cholecystitis with cholelithiasis with obstruction of the gallbladder. 2. Omental adhesions around the gallbladder. 3. Umbilical hernia. OPERATIVE PROCEDURE: Laparoscopic cholecystectomy, extensive lysis of omental adhesions, and primary repair of umbilical hernia. SURGEON: Jose Kaufman MD SHEET ROCK TAPER HELPER: JODIE De La Torre ANESTHESIA: General anesthesia. OPERATIVE DESCRIPTION: This 37-year-old woman was admitted about 3 days ago with abdominal pain, tenderness in the right upper quadrant. Patient was found to have gallstones of the gallbladder with acute cholecystitis. She also had a primary umbilical hernia. Patient was treated with antibiotics. The pain improved somewhat, although she continues to have elevated white count. Patient was brought in for laparoscopic cholecystectomy and primary repair of umbilical hernia. Consent was obtained. Risks, benefits, and complications had been discussed with the patient. Patient had been on antibiotics. General anesthesia was administered. The abdomen painted and draped. An incision was made in the infraumbilical crease of the umbilicus. This was deepened through the skin and subcutaneous tissue. A skin flap was then raised. It was noted that the patient had a defect in the midline at the umbilicus. This was circumferentially cleaned, , and well defined. The skin was pulled over the hernia defect. A 10- to 12-mm laparoscopic trocar of the Jordan type was introduced through the umbilical hernia into the abdominal cavity. The abdomen was inflated with carbon dioxide at 6 L/min with maximal intraabdominal pressure of 15 mmHg. A 5-mm camera was introduced into the abdominal cavity. The camera was switched between the 5 mm and a 10-mm camera. Under direct vision, two 5-mm trocars were inserted in the right upper quadrant of the abdomen, one along the midclavicular line, another along the anterior axillary line 2-3 fingerbreadths below the costal margin. These were noted entering the abdominal cavity under direct vision of the camera. Third trocar, another 5-mm, was inserted in the midline in the subxiphoid region after making a small skin incision. This was introduced into the abdominal cavity to the right of the falciform ligament. The gallbladder fundus was quite distended. This was grasped with a grasper and retracted cephalad. The whole body of the gallbladder was surrounded by omental adhesions. Using electrocautery as well as sharp and blunt dissection, the omental adhesions around the gallbladder were lysed all the way to the infundibulum of the gallbladder. Once the infundibulum of the gallbladder was exposed, this was grasped with another grasper and retracted inferiorly and laterally. With blunt dissection, the cystic duct was identified, and the junction of the cystic duct and gallbladder was identified. The cystic duct was isolated circumferentially and divided between clips. Further retraction brought into view the cystic artery which was also divided between clips. The gallbladder was then mobilized from its gallbladder bed, dividing the peritoneal reflection on either side about 2-3 mm from the liver. The gallbladder was very edematous and inflamed. This was dissected with sharp and blunt dissection as well as using electrocautery all the way towards the fundus of the gallbladder. The cystic artery was also divided between clips and so were its branches. The cholecystectomy was thus accomplished. Hemostasis was achieved as the dissection proceeded. An EndoCatch was then introduced through the umbilical port, the camera being switched to the subxiphoid port. The gallbladder was placed in an EndoCatch and retrieved out of the abdominal cavity. The specimen was sent to Pathology. The gallbladder fossa was then thoroughly irrigated with normal saline. All the fluid return was clear. The umbilical hernia was then primarily repaired with interrupted 2-0 Vicryl sutures. Next, 0.5% Marcaine was injected into the wound and into the skin and subcutaneous tissue. After all fluid was evacuated and hemostasis was confirmed, the skin was then approximated with buried, interrupted 4-0 Monocryl sutures. Sponge count and instrument count were correct. Cholecystectomy was completed, the adhesions were lysed, and the umbilical hernia was repaired. Dermabond was applied to the skin edges. Sponge count and instrument count were correct. Patient was extubated and sent to the recovery room in satisfactory and stable condition. Matthew [id number]
[2018-02-06 06:44] VITALS: PULSE 68
[2018-02-06] MEDS ORDERED: DEXTROSE 5%-WATER 100 ML IVPB ONE (09:42)
[2018-02-06] MEDS ORDERED: CEFTRIAXONE 2 GM in DEXTROSE 5%-WATER 100 ML IVPB SCH (10:00)
--- NOTE | 2018-02-06 11:13 | SURG ---
Surgery Feeder Catcher Note Feeder Catcher: Clara Trevino PA-C Date of Service: 02/06/18 Diagnosis: Calculus of gallbladder with acute cholecystitis, umbilical hernia. Procedure: Laparoscopic cholecystectomy, primary repair of umbilical hernia,. Lysis of omental adhesions. I was present for the entirety of the operative procedure. For further detail, please refer to operative report. Visit type - Case Type Case Type: ED Admission - Emergency Emergency Visit: Yes ED Registration Date: 02/03/18 Care time: The patient presented to the Emergency Department on the above date and was hospitalized for further evaluation of their emergent condition. - New patient This patient is new to me today: Yes Date on this admission: 02/05/18
--- NOTE | 2018-02-06 11:17 | PN ---
Progress Note, Physician - Current Medication List Current Medications: Active Medications Acetaminophen (Tylenol -) 325 mg PO Q6H PRN PRN Reason: PAIN LEVEL 4 - 6 Last Admin: 02/05/18 21:50 Dose: 325 mg Ceftriaxone Sodium 2 gm/ (Dextrose) 100 mls @ 200 mls/hr IVPB DAILY LUCY; Protocol Last Admin: 02/06/18 09:52 Dose: 200 mls/hr Metronidazole (Flagyl 500mg Premixed Ivpb -) 500 mg in 100 mls @ 100 mls/hr IVPB Q8H-IV LUCY Last Admin: 02/06/18 09:52 Dose: 100 mls/hr Sodium Chloride (Normal Saline -) 1,000 mls @ 75 mls/hr IV ASDIR LUCY Last Admin: 02/05/18 17:56 Dose: 75 mls/hr Ibuprofen (Motrin -) 200 mg PO Q4H PRN PRN Reason: PAIN LEVEL 1 - 3 Last Admin: 02/06/18 11:07 Dose: 200 mg Ondansetron HCl (Zofran Injection) 4 mg IVPUSH Q6H PRN PRN Reason: NAUSEA - Objective Vital Signs: Vital Signs Temperature 98.6 F 02/06/18 06:00 Pulse Rate 68 02/06/18 06:00 Respiratory Rate 20 02/06/18 06:00 Blood Pressure 100/56 02/06/18 06:00 O2 Sat by Pulse Oximetry (%) 99 02/05/18 21:00 Labs: CBC, BMP 02/04/18 06:00 02/03/18 06:00 INR, PTT INR 1.17 (0.82-1.09) H 02/02/18 15:00 Problem List - Problems (1) Abdominal pain, acute, right upper quadrant Code(s): R10.11 - RIGHT UPPER QUADRANT PAIN (2) Calculus of gallbladder with cholecystitis and obstruction Code(s): K80.19 - CALCULUS OF GALLBLADDER W OTH CHOLECYSTITIS WITH OBSTRUCTION Qualifiers: Cholelithiasis location: gallbladder Cholecystitis acuity: acute Qualified Code(s): K80.01 - Calculus of gallbladder with acute cholecystitis with obstruction Assessment/Plan Surgery: Patient is afebrile. Abdomen is soft , not tender. Wound is clean. Patient is informed of operative findings. Return to the office for follow up. Instructions given.
--- NOTE | 2018-02-06 11:31 | PN ---
Progress Note (short form) - Note Progress Note: Anesthesia Post op Pt seen and examined S:Alert and awake O; Vital Signs Temperature 98.6 F 02/06/18 06:00 Pulse Rate 68 02/06/18 06:00 Respiratory Rate 20 02/06/18 06:00 Blood Pressure 100/56 02/06/18 06:00 O2 Sat by Pulse Oximetry (%) 99 02/05/18 21:00 CBC, BMP 02/04/18 06:00 02/03/18 06:00 A/P: Current Active Problems Abdominal pain, acute, right upper quadrant (Acute) Abdominal pain, right upper quadrant (Acute) Calculus of gallbladder with cholecystitis and obstruction (Acute) s/p Cholecystectomy and umbilical hernia repair Doing well post op Continue current care Dennys Toro MD
--- NOTE | 2018-02-06 13:24 | PN ---
Teaching Attending Note Name of Resident: Magdaleno Monet ATTENDING PHYSICIAN STATEMENT I saw and evaluated the patient. I reviewed the resident's note and discussed the case with the resident. I agree with the resident's findings and plan as documented with exceptions below. SUBJECTIVE: patient seen and examined. some soreness around umbilical hernia repair and laparoscopic site, feels better, tolerating diet, no other complaints. OBJECTIVE: Vital Signs Period Temp Pulse Resp BP Sys/Hendrix Pulse Ox Last 24 Hr 98 F-99.2 F 66-91 16-20 100-125/56-84 98-100 Intake & Output 02/03/18 02/04/18 02/05/18 02/06/18 23:59 23:59 23:59 23:59 Intake Total 2550 2290 5000 885 Output Total 10 Balance 2550 2290 4990 885 General: lying in bed in no acute distress Abdomen:Soft, mild distension, with mild tenderness around umbilical and laparoscopic sites, no RUQ tenderness, positive bowel sounds, no voluntary or involuntary guarding or rigidity Chest: CTAB, no rales or wheezing Extremities: no edema ASSESSMENT AND PLAN: 37 yof with acute cholecystitis -Acute cholecystitis s/p lap ccy 02/05 -Microcytic anemia Plan: Discussed with kenny Yin for dc, no need for abx, outpatient follow up. Wound instructions given. Iron panel pending, advised patient to follow up outpatient and w/u for anemia with PCP D/c home today Plan and instructions discussed in detail with patient, all questions answered.
--- NOTE | 2018-02-06 13:29 | DS ---
Physical Exam: SUBJECTIVE: Patient seen and examined. Overnight Pt. received 1 dose of Percocet , 1 dose of Morphine at 2mg and 1 dose at 4 mg. No acute events overnight. Pt. endorses feeling abdominal pain and passing urine. Pt. denies passing gas or stool. Pt. denies pain anywhere else including CP, SOB or chills. Pt. endorses pain on inhalation. OBJECTIVE: Vital Signs Period Temp Pulse Resp BP Sys/Hendrix Pulse Ox Last 24 Hr 98 F-99.2 F 66-91 16-20 100-125/56-84 98-100 PHYSICAL EXAM GENERAL: Pt. in mild discomfort, awake, alert and oriented. LUNGS: Breath sounds equal, clear to auscultation bilaterally, no wheezes, no crackles, no accessory muscle use. HEART: Regular rate and rhythm, S1, S2 without murmur, rub or gallop. ABDOMEN: Soft, tender to palpation over surgical sites, nondistended, normoactive bowel sounds, no purulence, discharge or erythema. EXTREMITIES: warm, well-perfused, no edema, no calf pain. PSYCH: Normal mood, normal affect. SKIN: Warm, dry, normal turgor LABS CBC, BMP 02/04/18 06:00 02/03/18 06:00 HOSPITAL COURSE: Date of Admission:02/03/18 Date of Discharge: 02/06/18 Pre-Hospital: Pt is a 37 yo F with no signif PMHx presenting with a hx of upper abdominal pain x 1 day. Pt was in her usual state of health when she noticed a sudden upper abdominal pain 10/10 at about 9pm last night lasting until about 1am when she came into the hospital. The pain is intermittent, colicky with not related to food, no known worsening or relieving factors. Pain is associated with chills, and n/v of NBNB substances, but no objective fevers. No hematuria, no dysuria or burning on micturition, no loin tenderness. Pt's last bowel movement was during the onset of pain of formed brown stool with blood streaks ( pt has a previous hx of hemorrhoids with blood streaked stools in past). No change in diet, no jaundice, no recent travels. Pt had similar symptoms about 2 months ago that lasted a few minutes and self-resolved. Hospital: Pt. was admitted for acute cholecystitis confirmed with CT A/P. Pt. was treated with Ceftriaxone and Flagyl for 3 days d/t scheduling conflict with the OR. Pt. was found to have umbilical hernia and consented to have it repaired at the same time. Post-op pt. was able to tolerate liquids and diet was advanced without complication. Abx. were discontinued. Pt. was discharged with instructions on wound care and instructed to return if concerning symptoms manifested. Pt. was educated on what symptoms to look our for. Pt. was able to relay information back. Minutes to complete discharge: 36 Discharge Summary Reason For Visit: CHOLECYSTITIS Current Active Problems Abdominal pain, acute, right upper quadrant (Acute) Abdominal pain, right upper quadrant (Acute) Calculus of gallbladder with cholecystitis and obstruction (Acute) Condition: Improved - Instructions Diet, Activity, Other Instructions: Please follow up with you PCP in 1 week. Please follow all the post-op instructions provided by your surgeon. Please do not lift anything over 25 lbs for 2 weeks. Please avoid any strenuous activity for 2 weeks. You can take Tylenol for pain, please ensure not to exceed 4g in 24 hours. Also may alternate with Motrin 200 mg every 4-6 hours as needed for pain (do not take Motrin more than 3716-0103 mg in 24 hours). take with food and water. Please keep your wound open and check for discharge. You can take showers as normal. You may resume a normal diet when you go home, however you should avoid fatty foods as this may cause diarrhea and nausea. If you experience fevers, chills, discharge, or worsening abdominal pain, discharge from wound, belly distension, inability to pass gas or have a bowel movement please call 911 or return to the ED. Follow up in Dr. Kaufman's office , [phone]. Call and make an appointment for Monday02/12/2018 at 4.30 pm. You can follow up with Dr. Magdaleno Monet at the medical clinic ([facility]) , can call on discharge for follow up in 1 -2 weeks. Your blood tests for iron levels are currently pending, please have your doctor follow up on the results. You will need outpatient testing and gynecology follow up for your anemia (low blood count). Referrals: Awais Pino MD [Staff Physician] - 1 Week Gayatri Kaufman MD [Staff Physician] - 02/12/18 4:30 pm (Follow-up, post CCY.) Disposition: HOME This patient is new to me today: No Emergency Visit: Yes ED Registration Date: 02/03/18 Care time: The patient presented to the Emergency Department on the above date and was hospitalized for further evaluation of their emergent condition. Critical Care patient: No - Discharge Referral Referred to [facility] No
[2018-02-06 13:40] VITALS: BP 127/76; TEMP 98.7
[2018-02-06 14:30] LABS: SERUM IRON SATURATION 7 % (15-55); TOTAL IRON BINDING CAPACITY 403 ug/dL (250-450); UIBC 374 ug/dL (131-425)
== END 2018-02-06 13:49 | disposition home or self-care (01) | DRG 263 ==
LOC: JER 01:16 → UNDOADMIN 10:20 → JERBED 10:20 → JASUSAT 12:23 → J5S 14:27 → JASUSAT 02-03 15:38 → J5S 02-03 15:38
PROVIDERS: ADMIT Internal Medicine; ATTEND Hospitalist
PROC: 0DNU4ZZ Release Omentum, Percutaneous Endoscopic Approach (ICD-10-PCS; 2018-02-05)
PROC: 0WQF4ZZ Repair Abdominal Wall, Percutaneous Endoscopic Approach (ICD-10-PCS; 2018-02-05)
PROC: 0FT44ZZ Resection of Gallbladder, Percutaneous Endoscopic Approach (ICD-10-PCS; principal; 2018-02-05 12:00)
DX: K80.01 Calculus of gallbladder with acute cholecystitis with obstruction (principal); D64.9 Anemia, unspecified; K66.0 Peritoneal adhesions (postprocedural) (postinfection); K42.9 Umbilical hernia without obstruction or gangrene; D50.0 Iron deficiency anemia secondary to blood loss (chronic)
CPT/HCPCS: 36415; 71046-TC-FY; 74177-TC; 76705-TC; 80053; 81003; 82728; 83540; 83550; 83605; 83690; 83735; 84100; 84703; 85025; 85027; 85610; 85730; 86850; 86900; 86901; 87070; 87075; 87205; 88304-TC; 93005; 93010; 94760; 99284-25; J0131; J7030